=== PATIENT | female | born 1990 | race Caucasian/White ===

== ENCOUNTER 2019-02-13 15:14 | Emergency (ER) | payer SELFPAY, OTHER ==
[2019-02-14] MEDS ORDERED: HALOPERIDOL 5 MG INJ IM (00:02)
[2019-02-14] MEDS ORDERED: LORAZEPAM 2 MG INJ IM (00:30)
== END 2019-02-13 22:49 | disposition left against medical advice (07) ==
LOC: E/R 15:14
DX: Z53.21 Procedure and treatment not carried out due to patient leaving prior to being seen by health care provider (principal)